=== PATIENT | male | born 1960 | race Caucasian/White ===

== ENCOUNTER 2017-01-18 11:12 | Emergency (ER) | payer MEDICAID | END 2017-01-18 12:20 | disposition home or self-care (01) | LOC: D.ER 11:12 | DX: M54.30 Sciatica, unspecified side (principal); S39.012A Strain of muscle, fascia and tendon of lower back, initial encounter; X58.XXXA Exposure to other specified factors, initial encounter; Y93.89 Activity, other specified; Y92.89 Other specified places as the place of occurrence of the external cause; M62.830 Muscle spasm of back; M54.5 Low back pain ==

== ENCOUNTER 2017-02-14 06:10 | Emergency (ER) | payer MEDICAID | END 2017-02-14 07:32 | disposition home or self-care (01) | LOC: D.ER 06:10 | DX: M54.5 Low back pain (principal); M51.36 Other intervertebral disc degeneration, lumbar region ==

== ENCOUNTER 2017-02-27 21:45 | Emergency (ER) | payer MEDICAID | END 2017-02-27 23:10 | disposition home or self-care (01) | LOC: D.ER 21:45 | DX: M54.5 Low back pain (principal); M51.36 Other intervertebral disc degeneration, lumbar region ==

== ENCOUNTER 2017-02-28 14:11 | Emergency (ER) | payer MEDICAID | END 2017-02-28 16:59 | disposition home or self-care (01) | LOC: D.ER 14:11 | DX: M54.5 Low back pain (principal); M62.838 Other muscle spasm; M54.30 Sciatica, unspecified side; M51.36 Other intervertebral disc degeneration, lumbar region ==

== ENCOUNTER 2017-03-09 09:58 | Emergency (ER) | payer MEDICAID ==
[2017-03-09 10:35] LABS: BASOPHILS 0.2 % (0-2); EOSINOPHILS 0.5 % (0-7); HEMATOCRIT 44.1 % (42.0-54.0); HEMOGLOBIN 14.7 g/dL (13.5-17.5); IMMATURE GRANULOCYTES 0.6 % (0-5); LYMPHOCYTES 14.8 % (15-50); MCH 30.5 pg (26.0-34.0); MCHC 33.3 g/dL (31.0-37.0); MCV 91.5 fL (80.0-100.0); MEAN PLATELET VOLUME 9.8 fL (7.4-10.4); MONOCYTES 7.3 % (2-11); NEUTROPHILS 76.6 % (40-80); PLATELET COUNT 281 10x3/uL (130-400); RBC 4.82 10x6/uL (4.20-6.10); RDW 12.6 % (11.5-14.5); WBC 10.4 10x3/uL (4.8-10.8)
[2017-03-09 10:48] LABS: ALBUMIN 3.9 g/dL (3.4-5.0); ALKALINE PHOSPHATASE 102 U/L (46-116); ALT (SGPT) 27 U/L (10-68); CALC OSMOLALITY 280 mosm/kg (275-300); CALCIUM 9.3 mg/dL (8.5-10.1); CARBON DIOXIDE 29.2 mmol/L (21.0-32.0); CHLORIDE - SERUM 104 mmol/L (98-107); CREATININE - SERUM 0.7 mg/dL (0.6-1.3); GLUCOSE 114 mg/dL (74-106); POTASSIUM - SERUM 4.1 mmol/L (3.5-5.1); PROTEIN - SERUM 7.3 g/dL (6.4-8.2); SODIUM 141 mmol/L (136-145); UREA NITROGEN 11 mg/dL (7-18); eGFR NON AFRICAN AMERICAN > 90 mL/min (90-120)
[2017-03-09 12:07] LABS: APPEARANCE CLEAR (CLEAR); BILIRUBIN NEGATIVE (NEGATIVE); COLOR YELLOW (YELLOW); GLUCOSE NEGATIVE (NEGATIVE); KETONE NEGATIVE (NEGATIVE); LEUKOCYTE ESTERASE NEGATIVE (NEGATIVE); NITRITE NEGATIVE (NEGATIVE); PROTEIN NEGATIVE (NEGATIVE); SPECIFIC GRAVITY 1.005 (1.005-1.020); UROBILINOGEN NORMAL (NORMAL)
== END 2017-03-09 11:48 | disposition home or self-care (01) ==
LOC: D.ER 09:58
PROVIDERS: Emergency Medicine
DX: M54.9 Dorsalgia, unspecified (principal); F19.939 Other psychoactive substance use, unspecified with withdrawal, unspecified; G47.00 Insomnia, unspecified; M62.830 Muscle spasm of back; M51.36 Other intervertebral disc degeneration, lumbar region

== ENCOUNTER 2017-03-21 09:17 | Inpatient (IN) | payer MEDICAID ==
[~2017-03-21] VITALS: Ht 172.7 cm; Wt 79.5 kg
--- NOTE | ~2017-03-21 | CN ---
PATIENT NAME:PHAM DAVID MEDICAL RECORD: [id number] : 62 LOCATION:D.[place] D.2109 ADMIT DATE: 03/21/17 ACCOUNT: [id number] CONSULTING PHYSICIAN: SINAN MONGE MD REFERRING PHYSICIAN: ROSANNE BECKFORD MD DATE OF CONSULTATION: 03/21/2017 CONSULT REQUESTING PHYSICIAN: Rosanne Beckford MD. REASON FOR CONSULTATION: Bilateral pneumonia and shortness of breath. HISTORY OF PRESENT ILLNESS: Mr. David is a 56-year-old gentleman, who is sick and had some antibiotics at home, but the patient was not getting any better. He was coughing. He has shortness of breath. He has got fever and chills. He came into the ER, evaluation found that he has bilateral pneumonia. REVIEW OF SYSTEMS: Mainly in the history of present illness. PAST MEDICAL HISTORY: 1. History of pneumonia, no history of COPD or asthma. 2. Gastroesophageal reflux disease. PAST SURGICAL HISTORY: None significant. ALLERGIES: HE IS ALLERGIC TO BACTRIM. HOME MEDICATIONS: He is on [place] and [place]. PERSONAL AND SOCIAL HISTORY: The patient is an ex-smoker. He is a nondrinker. FAMILY HISTORY: Noncontributory. PHYSICAL EXAMINATION: GENERAL: Now, the patient is lying comfortably in bed. He is not in acute distress. VITAL SIGNS: The blood pressure is 107/86, pulse is 105, respirations 18, temperature 98, and SPO2 is 97% on 2 liter nasal cannula. HEENT: Conjunctivae are pink. Sclerae are nonicteric. NECK: Supple, no JVD. CHEST: There are bilateral crackles. No wheezing. HEART: Rate and rhythm regular, normal sound, no murmur. ABDOMEN: Soft, bowel sounds present. No hepatosplenomegaly. RECTAL: Deferred. EXTREMITIES: No cyanosis, no clubbing, no pedal edema. SKIN: Warm, normal turgor. CENTRAL NERVOUS SYSTEM: The patient is awake and alert. There are no obvious cranial nerve abnormalities. The gait was not tested. CHEST RADIOGRAPH: There are bilateral infiltrate and atelectasis. OTHER LABORATORY DATA: CBC with WBC of 8.5, hemoglobin 13.7, hematocrit 41.7, and platelet count 294. Chemistry: Sodium 142, potassium 4.3, BUN is 7, creatinine 0.8 and glucose 147. IMPRESSION: CONSULT REPORT [id number] PHAM DAVID 1. Pneumonia, multilobar and bilateral. 2. Most likely community-acquired pneumonia, I will doubt aspiration. 3. Acute hypoxic respiratory failure. 4. Gastroesophageal reflux disease. 5. Ex-smoker. RECOMMENDATION: 1. Continue Rocephin. Discontinue Zithromax, start him on Levaquin. 2. GERD precaution. 3. Followup labs and chest radiograph in the morning. 4. Mucinex DM [address] Beckford, once again thank you for involving me in the care of Mr. David. TRANSINT:[id number] Voice Confirmation ID: [id number] DOCUMENT ID: [id number] SINAN MONGE MD CC: ROSANNE BECKFORD MD [id number] DICTATION DATE: 03/21/171612 SUPERVISOR NUCLEAR MEDICINE: 03/21/17 170 ADM IN [place] [id number] [place] [id number]
--- NOTE | ~2017-03-21 | EC ---
PATIENT:PHAM DOBSON DATE OF SERVICE: 03/21/17 SEX: M MEDICAL RECORD: [id number] DATE OF : 62 LOCATION:D.M2 D.210 AGE OF PATIENT: 56 ADMISSION DATE: 03/21/17 REFERRING PHYSICIAN: INTERPRETING PHYSICIAN: HILARY SKINNER M.D. ECHOCARDIOGRAM REPORT ECHO CHARGES 4 ECHO COMPLETE CLINICAL DIAGNOSIS: DYSPNEA ECHOCARDIOGRAPHIC MEASUREMENTS (adult normal given) AC root (d.<3.7cm) 3.9 LV Septum d (<1.2 cm> 1.6 Valve Excursion 2.2 LV Septum (systole) 1.9 Left Atria (s.<4.0cm> 4.1 LVPW d(<1.2cm) 1.4 RV (d.<2.3cm) 2.7 LVPW (sytole) 2.1 LV diastole(<5.6CM) 6.1 MV E-F(>70mm/sec) LV systole 3.9 LVOT Diameter 2.1 MV exc.(>10mm) Est.ejection fraction (50-75%) Pericardial Effusion N DOPPLER: LVIT A 79.0 E 53.0 LA RVSP 32.0 LVOT 100 AOP1/2T Asc. Ao 151 RVOT 80.0 RA PA 111 AV Gradient Peak 9.2 AV Mean 3.7 AV Area 2.4 MV Gradient Peak 3.6 MV Mean 1.4 MV Area COMMENTS: Topstitcher Lockstitch: Negrita GONZALEZOE Import Customs Clearing Agent:Misha Skinner TAPE# PACS DATE OF SERVICE: 03/22/2017 REFERRING PHYSICIAN: Deon Beckford MD. INDICATION: Dyspnea. DESCRIPTION: Left ventricle demonstrates left ventricular hypertrophy. No wall motion abnormalities are seen. Estimated ejection fraction is 55%. Mitral valve is structurally normal. There is trivial regurgitation noted. Left atrium is mildly dilated. The aortic valve is trileaflet. There is no stenosis ECHOCARDIOGRAM REPORT [id number] PHAM DOBSON or regurgitation seen. The ascending aorta is mildly dilated at 3.9 cm. Right ventricle is mildly dilated. Tricuspid valve is structurally normal. There is trivial regurgitation noted. Right atrium is normal size. There is no pericardial effusion noted. Right ventricular systolic pressure is elevated at 30 mmHg. IMPRESSION: 1. Left ventricular hypertrophy with preserved ejection fraction of 55%. 2. Trivial mitral regurgitation. 3. Trivial tricuspid regurgitation. TRANSINT:[id number] Voice Confirmation ID: [id number] DOCUMENT ID: [id number] HILARY SKINNER M.D. CC: [id number] DICTATION DATE: 03/22/17 154 BUSINESS EXCELLENCE MANAGER: 03/22/17 1600 ADM IN [facility] [address] [place] [id number]
[2017-03-21 09:47] LABS: BASOPHILS 0.4 % (0-2); EOSINOPHILS 2.2 % (0-7); HEMATOCRIT 41.7 % (42.0-54.0); HEMOGLOBIN 13.7 g/dL (13.5-17.5); IMMATURE GRANULOCYTES 0.9 % (0-5); LYMPHOCYTES 15.6 % (15-50); MCH 30.5 pg (26.0-34.0); MCHC 32.9 g/dL (31.0-37.0); MCV 92.9 fL (80.0-100.0); MEAN PLATELET VOLUME 9.8 fL (7.4-10.4); NEUTROPHILS 74.9 % (40-80); PLATELET COUNT 294 10x3/uL (130-400); RBC 4.49 10x6/uL (4.20-6.10); RDW 12.4 % (11.5-14.5); WBC 8.5 10x3/uL (4.8-10.8)
[2017-03-21 10:09] LABS: CALC OSMOLALITY 283 mosm/kg (275-300); CALCIUM 9.7 mg/dL (8.5-10.1); CARBON DIOXIDE 32.7 mmol/L (21.0-32.0); CHLORIDE - SERUM 105 mmol/L (98-107); CKMB 0.3 U/L (0.0-3.6); CREATINE KINASE 43 UL (21-232); CREATININE - SERUM 0.8 mg/dL (0.6-1.3); GLUCOSE 145 mg/dL (74-106); POTASSIUM - SERUM 4.3 mmol/L (3.5-5.1); PRO BNP 44 pg/mL (0-125); SODIUM 142 mmol/L (136-145); TROPONIN-I < 0.017 ng/mL (0.000-0.060); UREA NITROGEN 7 mg/dL (7-18); eGFR NON AFRICAN AMERICAN > 90 mL/min (90-120)
--- NOTE | 2017-03-21 11:08 | NUR ---
RECEIVED PATIENT VIA [employer] ALERT/AWAKE FROM ED AT THIS TIME. ASSISTED PATIENT TO BED. ROCEPHIN COMPLETED INFUSING AT THIS TIME. CALL LIGHT PLACED WITHIN REACH. NO DISTRESS. IV TO LEFT LATERAL AC AREA.
[2017-03-21] MEDS ORDERED: LOTREL 10/20 CA1 CAP PO (11:13)
[2017-03-21] MEDS ORDERED: HYDROCODONE-APA1 TAB PO (11:15)
--- NOTE | 2017-03-21 13:35 | NUR ---
MEDICATED FOR ANXIETY AND PAIN AT THIS TIME. NO DISTRESS.
[2017-03-21 14:54] VITALS: BP 107/86; Ht 172.7 cm; Wt 79.5 kg
--- NOTE | 2017-03-21 18:30 | NUR ---
SITTING IN BED WITH ATTENTION TOWARD TELEVISION. CALL LIGHT WITHIN REACH. NO DISTRESS. DENIES NEEDS AT THIS TIME.
--- NOTE | 2017-03-21 19:17 | NUR ---
MEDICATED FOR PAIN AT THIS TIME. NO DISTRESS.
[2017-03-21 20:23] VITALS: BP 117/74
--- NOTE | 2017-03-21 22:45 | NUR ---
INITIAL ROUNDS COMPETED AT 1920 HRS. PT STATED HE JUST RECEIVED HIS ATIVAN AND NORCO FROM PREVIOUS NURSE. ASSSESSMETN COMPLETED AT 2015 HRS. SCD'S OFF PER PT'S REQUESTS. REFUSES SCD'S HE IS UP AD FLO. O2 2LNC. LUNGS DIMINISHED IN BASES WITH SCATTERED CRACKLES NOTED. IV TO LAC SL. PM MEDS GIVEN PER ORDERS. PT CURRENTLY RESTING WTIH EYES CLOSED. RESP EVEN AND REGULAR. SR UP X2, CALL LIGHT WITHIN REACH.
[2017-03-21 23:59] VITALS: BP 123/76
--- NOTE | 2017-03-22 00:23 | NUR ---
PT STATES WILL REFUSE 0400 VSS. WILL CONTINUE TO MONITOR.
--- NOTE | 2017-03-22 02:32 | NUR ---
PT RESTING WITH EYES CLOSED. RESP EVEN AND REGULAR. SR UP X2, CALL LIGHT WITHIN REACH.
--- NOTE | 2017-03-22 04:45 | NUR ---
PT RESTING WITHEYES CLOSED. RESP EVEN AND REGULAR. SR UP X2, CALL LIGHT WITHIN REACH.
[2017-03-22 05:09] LABS: BASOPHILS 0.2 % (0-2); EOSINOPHILS 4.2 % (0-7); HEMATOCRIT 38.4 % (42.0-54.0); HEMOGLOBIN 12.2 g/dL (13.5-17.5); IMMATURE GRANULOCYTES 0.7 % (0-5); LYMPHOCYTES 19.4 % (15-50); MCH 29.6 pg (26.0-34.0); MCHC 31.8 g/dL (31.0-37.0); MCV 93.2 fL (80.0-100.0); MONOCYTES 9.7 % (2-11); NEUTROPHILS 65.8 % (40-80); PLATELET COUNT 285 10x3/uL (130-400); RBC 4.12 10x6/uL (4.20-6.10); RDW 12.3 % (11.5-14.5); WBC 8.4 10x3/uL (4.8-10.8)
[2017-03-22 05:15] LABS: CALC OSMOLALITY 280 mosm/kg (275-300); CARBON DIOXIDE 29.9 mmol/L (21.0-32.0); CHLORIDE - SERUM 105 mmol/L (98-107); CREATININE - SERUM 0.8 mg/dL (0.6-1.3); GLUCOSE 119 mg/dL (74-106); POTASSIUM - SERUM 4.3 mmol/L (3.5-5.1); SODIUM 141 mmol/L (136-145); UREA NITROGEN 9 mg/dL (7-18); eGFR NON AFRICAN AMERICAN > 90 mL/min (90-120)
--- NOTE | 2017-03-22 06:08 | NUR ---
VSS THROUGHOUT NGIHT. PT REFUSES 0400 VS. PT STAES ATIVAN AND NORCO CONTROL CHRONIC BACK PAIN. NEEDS MET; WILL CONTINUE TO MONITOR.
[2017-03-22 08:36] VITALS: BP 125/83
[2017-03-22 11:38] VITALS: BP 117/65
[2017-03-22 12:44] LABS: CKMB 0.2 U/L (0.0-3.6); CREATINE KINASE 26 UL (21-232); TROPONIN-I < 0.017 ng/mL (0.000-0.060)
[2017-03-22 12:51] LABS: HEMOGLOBIN A1C 5.9 % (4.8-6.0)
[2017-03-22] MEDS ORDERED: CYCLOBENZAPRINE10 MG PO (15:16)
[2017-03-22] MEDS ORDERED: OMEPRAZOLE20 M1 PO (15:16)
[2017-03-22 15:43] VITALS: BP 127/77
[2017-03-22 18:00] LABS: CKMB 0.3 U/L (0.0-3.6); CREATINE KINASE 30 UL (21-232)
[2017-03-22 18:02] LABS: TROPONIN-I < 0.017 ng/mL (0.000-0.060)
[2017-03-22 18:09] LABS: % SATURATION 17 % (15-55); IRON 39 ug/dl (35-150); TOTAL IRON BIND CAPACITY 217 ug/dl (260-445); UNSAT IRON BIND CAPACITY 178 ug/dl (150-375)
--- NOTE | 2017-03-22 19:46 | NUR ---
ALERT/AWAKE WATCHING TV. REQUESTED ATIVAN. ON 02 AT 2L/NC RR 18 EVEN U/L. IV IN L FA INTACT SL. REFUSES SCD'S ON. CALL LIGHT AND BEDSIDE TABLE WITH PERSONAL ITEMS IN REACH.
[2017-03-22 20:00] VITALS: BP 135/86
--- NOTE | 2017-03-22 20:23 | NUR ---
ADMIN ATIVAN PO PER REQUEST FOR AXIETY. WALKING AROUND IN ROOM. STATED "I DO NOT WANT TO BE WOKE UP FOR MIDNIGHT VITAL SIGNS". WILL INFORM MATERIALS HANDLING EQUIPMENT OPERATOR.
--- NOTE | 2017-03-22 23:20 | NUR ---
BULK SYSTEM OPERATOR PRESENT IN ROOM. DENIES PAIN OR ANY NEEDS.
[2017-03-22 23:54] LABS: CKMB 0.4 U/L (0.0-3.6); CREATINE KINASE 49 UL (21-232)
[2017-03-22 23:55] LABS: TROPONIN-I < 0.017 ng/mL (0.000-0.060)
[2017-03-23 04:16] VITALS: BP 98/78
[2017-03-23 05:18] LABS: BASOPHILS 0.2 % (0-2); EOSINOPHILS 3.2 % (0-7); HEMATOCRIT 39.5 % (42.0-54.0); HEMOGLOBIN 12.6 g/dL (13.5-17.5); IMMATURE GRANULOCYTES 1.6 % (0-5); LYMPHOCYTES 16.8 % (15-50); MCH 29.5 pg (26.0-34.0); MCHC 31.9 g/dL (31.0-37.0); MCV 92.5 fL (80.0-100.0); MEAN PLATELET VOLUME 9.7 fL (7.4-10.4); MONOCYTES 6.7 % (2-11); NEUTROPHILS 71.5 % (40-80); PLATELET COUNT 315 10x3/uL (130-400); RBC 4.27 10x6/uL (4.20-6.10); RDW 12.3 % (11.5-14.5); WBC 10.1 10x3/uL (4.8-10.8)
[2017-03-23 05:49] LABS: CALC OSMOLALITY 277 mosm/kg (275-300); CARBON DIOXIDE 30.4 mmol/L (21.0-32.0); CHLORIDE - SERUM 104 mmol/L (98-107); CREATININE - SERUM 0.8 mg/dL (0.6-1.3); GLUCOSE 118 mg/dL (74-106); SODIUM 139 mmol/L (136-145); UREA NITROGEN 11 mg/dL (7-18); eGFR NON AFRICAN AMERICAN > 90 mL/min (90-120)
--- NOTE | 2017-03-23 06:10 | NUR ---
ADMIN NORCO 10 MG PO AND ATIVAN 1 MG PO PER REQUEST. NO OTHER NEEDS VOICED.
[2017-03-23 07:53] VITALS: BP 126/75
[2017-03-23 11:38] VITALS: BP 125/84
[2017-03-23 16:35] VITALS: BP 132/85
[2017-03-23 19:00] VITALS: BP 130/84
--- NOTE | 2017-03-23 22:30 | NUR ---
SITED IV IN RT FA WITH 22G. ADMIN TORADOL 30 MG IV. REQUESTED DOOR CLOSED AND LIGHTS OUT TO SLEEP. REQUESTED TO HOLD MIDNIGHT VITAL SIGNS.
[2017-03-24 04:32] VITALS: BP 113/43
--- NOTE | 2017-03-24 04:45 | NUR ---
ADMIN SCHED TORADOL IV. REQUESTED LIGHTS OFF AND DOOR CLOSED TO GO BACK TO SLEEP.
[2017-03-24 06:05] LABS: BASOPHILS 0.3 % (0-2); EOSINOPHILS 2.8 % (0-7); HEMATOCRIT 38.6 % (42.0-54.0); HEMOGLOBIN 12.4 g/dL (13.5-17.5); LYMPHOCYTES 15.5 % (15-50); MCH 29.9 pg (26.0-34.0); MCHC 32.1 g/dL (31.0-37.0); MEAN PLATELET VOLUME 9.6 fL (7.4-10.4); MONOCYTES 7.4 % (2-11); PLATELET COUNT 300 10x3/uL (130-400); RBC 4.15 10x6/uL (4.20-6.10); RDW 12.4 % (11.5-14.5); WBC 9.6 10x3/uL (4.8-10.8)
[2017-03-24 06:23] LABS: CALC OSMOLALITY 283 mosm/kg (275-300); CARBON DIOXIDE 28.7 mmol/L (21.0-32.0); CHLORIDE - SERUM 106 mmol/L (98-107); CREATININE - SERUM 0.8 mg/dL (0.6-1.3); GLUCOSE 131 mg/dL (74-106); POTASSIUM - SERUM 3.9 mmol/L (3.5-5.1); SODIUM 142 mmol/L (136-145); UREA NITROGEN 10 mg/dL (7-18); eGFR NON AFRICAN AMERICAN > 90 mL/min (90-120)
--- NOTE | 2017-03-24 06:41 | NUR ---
ADMIN NORCO 10 PO AND ATIVAN 1MG PO PER REQUEST FOR C/O "PAIN IN MY BACK". NO OTHER NEEDS VOICED.
--- NOTE | 2017-03-24 07:17 | NUR ---
PT SITTING UP IN BED ASKING ABOUT DC TO HOME. NO ORDERS TO DC OF NOW, PT IS AWARE. PT DENIES OTHER NEEDS WILL CONT TO MONITOR.
[2017-03-24 08:21] LABS: FOLATE (FOLIC ACID) - SERUM 16.2 ng/mL (>3.0)
[2017-03-24 11:53] VITALS: BP 158/92
[2017-03-24] MEDS ORDERED: LEVAQUIN750 MG PO (12:36)
[2017-03-24] MEDS ORDERED: FLORAJEN3 CAPS460 MG PO (12:41)
--- NOTE | 2017-03-24 14:08 | NUR ---
DC PIV WITH CATHETER TIP INTACT. PT IS VERY UPSET AND YELLING AT ME STATING IT HAS BEEN TWO HOURS SINCE DR SALCEDO TOLD HIM HE WOULD BE DISCHARGED HOME AND HE WANTS TO GO NOW. I EXPLAINED TO PT, LIKE I HAVE SEVERAL TIMES IN THE TIME THAT DR SALCEDO TOLD HIM HE COULD GO HOME THAT WE DID NOT HAVE AN ORDER FOR DISCHARGE YET AND THAT WE CAN NOT COMPLETE PAPERWORK UNTIL DC ORDER IS PLACED. PT STILL YELLING AND IS STANDING AT BEDSIDE ALSO ANGRY....
--- NOTE | 2017-03-24 14:43 | NUR ---
WENT OVER DC PAPERWORK WITH PT AND PT BOTH VERBALIZE UNDERSTANDING. PT WAS GIVEN PAPER SCRIPTS FOR SULAIMAN, JIMI, AND ULISES. PT REFUSED WHEELCHAIR AND WALKED OUT WITH .
--- NOTE | 2017-03-24 14:50 | NUR ---
Patient Name: PHAM DOBSON Admission Status: ER Accout number: [id number] Admission Date: 03-21-2017 : 1960 Admission Diagnosis:PNEUMONIA, UNSPECIFIED ORGANISM Attending: DELFINO Current LOS: 3 Anticipated DC Date: 03-24-2017 Planned Disposition: Home Primary Insurance: [place] PRIVATE OPTIONS ARA LATE ENTRY: Discharge Planning Comments: * Is the patient Alert and Oriented? Yes 0 * How many steps to enter\exit or inside your home? 4 0 * PCP DR. DEMPSEY 0 * Pharmacy [facility] OR [facility] 0 * Preadmission Environment Home with Family 0 * ADLs Independent 0 * Equipment None 0 * Other Equipment NO MEDICAL EQUIPMENT PROVIDER PREFERENCE 0 * List name and contact numbers for known caregivers / representatives who currently or will assist patient after discharge: IRIS DOBSON, SPOUSE, 0 * Community resources currently utilized None 0 * Please name any agencies selected above. NONE 0 * Additional services required to return to the preadmission environment? No 0 * Can the patient safely return to the preadmission environment? Yes 0 * Has this patient been hospitalized within the prior 30 days at any hospital? No 0 CM MET WITH PT IN ROOM TO DISCUSS DISCHARGE PLANNING AND NEEDS. PT REPORTS LIVING AT HOME INDEPENDENTLY WITH SPOUSE. PT HAS NO MEDICAL EQUIPMENT AND NO OUTSIDE SERVICES ASSISTING IN THE HOME. CM DISCUSSED AVAILABILITY OF HOME HEALTH, REHAB SERVICES AND MEDICAL EQUIPMENT. PT DENIES DISCHARGE NEEDS, REPORTS HIS SPOUSE IS HERE TO TRANSPORT HOME AT DISCHARGE TODAY. CM PROVIDED PT WITH HIS INSURANCE COMMUNITY HVAC SERVICE MANAGERMANAGER PORT INFORMATION IN CASE HE NEEDS IT IN THE FUTURE. Manager Category: Juanito Bryan
== END 2017-03-24 14:44 | disposition home or self-care (01) | DRG 189 ==
LOC: D.ER 09:17 → D.M2 10:58
PROVIDERS: Emergency Medicine; Family Medicine; Internal Medicine Pulmonary Disease; ADMIT Emergency Medicine
DX: J96.01 Acute respiratory failure with hypoxia (principal); J18.9 Pneumonia, unspecified organism; J44.0 Chronic obstructive pulmonary disease with (acute) lower respiratory infection; J44.1 Chronic obstructive pulmonary disease with (acute) exacerbation; I10 Essential (primary) hypertension; K21.9 Gastro-esophageal reflux disease without esophagitis; I08.1 Rheumatic disorders of both mitral and tricuspid valves; D64.9 Anemia, unspecified; G89.29 Other chronic pain; M54.9 Dorsalgia, unspecified; Z87.01 Personal history of pneumonia (recurrent); Z87.891 Personal history of nicotine dependence

== ENCOUNTER 2017-08-10 09:55 | Emergency (ER) | payer MEDICAID ==
[2017-03-21 14:54] VITALS: BMI 26.6
[~2017-08-10 09:55] MED LIST: CYCLOBENZAPRINE10 MG PO; FLORAJEN3 CAPS460 MG PO; HYDROCODONE-APA1 TAB PO; LEVAQUIN750 MG PO; LOTREL 10/20 CA1 CAP PO; OMEPRAZOLE20 M1 PO
== END 2017-08-10 11:27 | disposition home or self-care (01) ==
LOC: D.ER 09:55
DX: M54.5 Low back pain (principal); F17.200 Nicotine dependence, unspecified, uncomplicated

== ENCOUNTER 2017-08-29 17:50 | Emergency (ER) | payer MEDICAID ==
[2017-03-21 14:54] VITALS: BMI 26.6
== END 2017-08-29 19:30 | disposition home or self-care (01) ==
LOC: D.ER 17:50
DX: M54.5 Low back pain (principal); S39.012A Strain of muscle, fascia and tendon of lower back, initial encounter; X58.XXXA Exposure to other specified factors, initial encounter; Y93.89 Activity, other specified; Y92.89 Other specified places as the place of occurrence of the external cause

== ENCOUNTER 2017-09-07 05:49 | Emergency (ER) | payer MEDICAID ==
[2017-03-21 14:54] VITALS: BMI 26.6
== END 2017-09-07 09:04 | disposition home or self-care (01) ==
LOC: D.ER 05:49
DX: M54.5 Low back pain (principal)

== ENCOUNTER 2017-10-02 11:07 | Emergency (ER) | payer MEDICAID ==
[2017-03-21 14:54] VITALS: BMI 26.6
== END 2017-10-02 15:00 | disposition home or self-care (01) ==
LOC: D.ER 11:07
DX: M54.5 Low back pain (principal); S39.012A Strain of muscle, fascia and tendon of lower back, initial encounter; X58.XXXA Exposure to other specified factors, initial encounter; Y93.89 Activity, other specified; Y92.029 Unspecified place in mobile home as the place of occurrence of the external cause

== ENCOUNTER 2017-10-30 09:22 | Emergency (ER) | payer MEDICAID ==
[2017-03-21 14:54] VITALS: BMI 26.6
== END 2017-10-30 11:05 | disposition home or self-care (01) ==
LOC: D.ER 09:22
DX: M54.5 Low back pain (principal); S39.012A Strain of muscle, fascia and tendon of lower back, initial encounter; X58.XXXA Exposure to other specified factors, initial encounter; Y93.89 Activity, other specified; Y92.89 Other specified places as the place of occurrence of the external cause; M62.830 Muscle spasm of back

== ENCOUNTER 2017-11-28 09:38 | Emergency (ER) | payer MEDICAID ==
[2017-03-21 14:54] VITALS: BMI 26.6
== END 2017-11-28 10:53 | disposition home or self-care (01) ==
LOC: D.ER 09:38
DX: M79.1 Myalgia (principal); M54.5 Low back pain

== ENCOUNTER 2018-02-23 18:52 | Emergency (ER) | payer MEDICAID ==
[2017-03-21 14:54] VITALS: BMI 26.6
== END 2018-02-23 22:17 | disposition home or self-care (01) ==
LOC: D.ER 18:52
DX: M54.5 Low back pain (principal); M62.838 Other muscle spasm; M54.16 Radiculopathy, lumbar region

== ENCOUNTER 2018-02-27 10:41 | Emergency (ER) | payer MEDICAID ==
[2017-03-21 14:54] VITALS: BMI 26.6
== END 2018-02-27 12:35 | disposition home or self-care (01) ==
LOC: D.ER 10:41
DX: M54.5 Low back pain (principal)

== ENCOUNTER 2018-04-10 01:13 | Emergency (ER) | payer MEDICAID ==
[2017-03-21 14:54] VITALS: BMI 26.6
[2018-04-10 02:55] LABS: BASOPHILS 0.1 % (0-2); EOSINOPHILS 1.1 % (0-7); HEMOGLOBIN 13.2 g/dL (13.5-17.5); IMMATURE GRANULOCYTES 0.2 % (0-5); LYMPHOCYTES 12.4 % (15-50); MCH 29.1 pg (26.0-34.0); MCV 88.1 fL (80.0-100.0); MEAN PLATELET VOLUME 9.8 fL (7.4-10.4); NEUTROPHILS 78.2 % (40-80); RBC 4.54 10x6/uL (4.20-6.10); RDW 12.9 % (11.5-14.5); WBC 12.8 10x3/uL (4.8-10.8)
[2018-04-10 02:59] LABS: PLATELET COUNT 229 10x3/uL (130-400)
[2018-04-10 03:08] LABS: INR 0.98 (0.85-1.17); PROTIME 12.6 SECONDS (11.6-15.0)
[2018-04-10 03:11] LABS: ALBUMIN 3.5 g/dL (3.4-5.0); ALKALINE PHOSPHATASE 92 U/L (46-116); ALT (SGPT) 31 U/L (10-68); BILIRUBIN - TOTAL 0.24 mg/dL (0.2-1.3); CALC OSMOLALITY 291 mosm/kg (275-300); CALCIUM 9.1 mg/dL (8.5-10.1); CARBON DIOXIDE 27.1 mmol/L (21.0-32.0); CHLORIDE - SERUM 109 mmol/L (98-107); CREATININE - SERUM 0.7 mg/dL (0.6-1.3); GLUCOSE 102 mg/dL (74-106); POTASSIUM - SERUM 3.5 mmol/L (3.5-5.1); PROTEIN - SERUM 6.6 g/dL (6.4-8.2); SODIUM 148 mmol/L (136-145); UREA NITROGEN 8 mg/dL (7-18); eGFR NON AFRICAN AMERICAN > 90 mL/min (90-120)
== END 2018-04-10 05:03 | disposition home or self-care (01) ==
LOC: D.ER 01:13
PROVIDERS: Family Medicine
DX: M54.5 Low back pain (principal)

== ENCOUNTER 2018-04-15 16:18 | Emergency (ER) | payer MEDICAID ==
[~2018-04-15] VITALS: Ht 172.7 cm; Wt 81.8 kg
[2018-04-15 16:40] VITALS: Ht 172.7 cm; Wt 81.8 kg
[2018-04-15 22:47] VITALS: BP 130/77
== END 2018-04-15 22:48 | disposition home or self-care (01) ==
LOC: D.ER 16:18
DX: R07.81 Pleurodynia (principal); R51 Headache; W10.9XXA Fall (on) (from) unspecified stairs and steps, initial encounter; Y93.89 Activity, other specified; Y92.019 Unspecified place in single-family (private) house as the place of occurrence of the external cause; I10 Essential (primary) hypertension

== ENCOUNTER 2018-06-23 18:49 | Observation (INO) | payer MEDICAID ==
[~2018-06-23] VITALS: Ht 172.7 cm; Wt 79.5 kg
[2018-06-23 19:38] LABS: BASOPHILS 0.2 % (0-2); EOSINOPHILS 1.5 % (0-7); HEMATOCRIT 42.1 % (42.0-54.0); IMMATURE GRANULOCYTES 0.5 % (0-5); LYMPHOCYTES 21.3 % (15-50); MCHC 33.3 g/dL (31.0-37.0); MCV 90.1 fL (80.0-100.0); MEAN PLATELET VOLUME 9.8 fL (7.4-10.4); MONOCYTES 9.3 % (2-11); NEUTROPHILS 67.2 % (40-80); PLATELET COUNT 248 10x3/uL (130-400); RBC 4.67 10x6/uL (4.20-6.10); RDW 12.7 % (11.5-14.5); WBC 8.7 10x3/uL (4.8-10.8)
[2018-06-23 19:58] LABS: CREATININE - SERUM 0.8 mg/dL (0.6-1.3); GLUCOSE 103 mg/dL (74-106); UREA NITROGEN 13 mg/dL (7-18); eGFR NON AFRICAN AMERICAN > 90 mL/min (90-120)
[2018-06-23 19:59] LABS: ALBUMIN 3.6 g/dL (3.4-5.0); ALKALINE PHOSPHATASE 107 U/L (46-116); ALT (SGPT) 23 U/L (10-68); BILIRUBIN - TOTAL 0.26 mg/dL (0.2-1.3); CALC OSMOLALITY 282 mosm/kg (275-300); CALCIUM 8.9 mg/dL (8.5-10.1); CARBON DIOXIDE 30.2 mmol/L (21.0-32.0); CHLORIDE - SERUM 105 mmol/L (98-107); POTASSIUM - SERUM 3.6 mmol/L (3.5-5.1); PROTEIN - SERUM 7.3 g/dL (6.4-8.2); SODIUM 142 mmol/L (136-145)
[2018-06-23 20:30] VITALS: BP 138/91
[2018-06-23 20:35] LABS: INR 0.97 (0.85-1.17); PROTIME 12.4 SECONDS (11.6-15.0)
[2018-06-23 20:36] LABS: AMYLASE - SERUM 28 U/L (25-115); C-REACTIVE PROTEIN 0.3 mg/dL (0.0-0.9); CKMB 1.6 U/L (0.0-3.6); CREATINE KINASE 92 UL (21-232); LIPASE 65 U/L (73-393); PRO BNP 38 pg/mL (0-125); THYROID STIMULATING HORMONE 1.23 uIU/mL (0.36-3.74)
[2018-06-23 20:37] LABS: D-DIMER-QUANTITATIVE 0.31 ug/mLFEU (0.20-0.54)
[2018-06-23 22:30] VITALS: BP 133/86
[2018-06-24 01:08] VITALS: BP 153/95
[2018-06-24] MEDS ORDERED: AMBIEN10 MG PO (01:10)
[2018-06-24 01:23] VITALS: BP 153/95; BMI 26.6
[2018-06-24 04:56] VITALS: BP 130/81
[2018-06-24 05:07] LABS: BASOPHILS 0.1 % (0-2); EOSINOPHILS 0 % (0-7); HEMATOCRIT 41.5 % (42.0-54.0); HEMOGLOBIN 13.8 g/dL (13.5-17.5); IMMATURE GRANULOCYTES 0.2 % (0-5); LYMPHOCYTES 5.2 % (15-50); MCHC 33.3 g/dL (31.0-37.0); MCV 90.2 fL (80.0-100.0); MEAN PLATELET VOLUME 10.2 fL (7.4-10.4); MONOCYTES 0.6 % (2-11); NEUTROPHILS 93.9 % (40-80); PLATELET COUNT 254 10x3/uL (130-400); RDW 12.5 % (11.5-14.5); WBC 9.6 10x3/uL (4.8-10.8)
[2018-06-24 05:28] LABS: CALCIUM 8.6 mg/dL (8.5-10.1); CHLORIDE - SERUM 105 mmol/L (98-107); CREATININE - SERUM 0.8 mg/dL (0.6-1.3); SODIUM 140 mmol/L (136-145); UREA NITROGEN 12 mg/dL (7-18); eGFR NON AFRICAN AMERICAN > 90 mL/min (90-120)
[2018-06-24 05:30] LABS: CALC OSMOLALITY 284 mosm/kg (275-300); GLUCOSE 204 mg/dL (74-106); POTASSIUM - SERUM 4.3 mmol/L (3.5-5.1)
[2018-06-24 08:46] VITALS: BP 143/82
[2018-06-24 11:41] VITALS: Ht 172.7 cm; Wt 79.5 kg
[2018-06-24] MEDS ORDERED: PROAIR HFA8.5 GM INH (11:42)
== END 2018-06-24 14:26 | disposition home or self-care (01) ==
LOC: D.ER 18:49 → D.MS 22:33 → D.EDHOLD 22:33 → OBSVTIME 22:33 → D.MS 23:00
PROVIDERS: Family Medicine
DX: J44.1 Chronic obstructive pulmonary disease with (acute) exacerbation (principal); R06.02 Shortness of breath; I10 Essential (primary) hypertension

== ENCOUNTER 2018-07-12 21:32 | Emergency (ER) | payer MEDICAID ==
[~2018-07-12] VITALS: Ht 172.7 cm; Wt 79.5 kg
[~2018-07-12 21:32] MED LIST changes: +AMBIEN10 MG PO; +PROAIR HFA8.5 GM INH
[2018-07-12 21:50] VITALS: Ht 172.7 cm; Wt 79.5 kg
[2018-07-13] LABS: HEMATOCRIT 37.4 % (42.0-54.0); HEMOGLOBIN 12.5 g/dL (13.5-17.5); LYMPHOCYTES 21.7 % (15-50); MCH 29.4 pg (26.0-34.0); MCHC 33.4 g/dL (31.0-37.0); NEUTROPHILS 66.4 % (40-80); PLATELET COUNT 263 10x3/uL (130-400); RBC 4.25 10x6/uL (4.20-6.10); RDW 12.1 % (11.5-14.5); WBC 7.7 10x3/uL (4.8-10.8)
[2018-07-13 00:20] LABS: ALBUMIN 3.2 g/dL (3.4-5.0); ALKALINE PHOSPHATASE 94 U/L (46-116); ALT (SGPT) 31 U/L (10-68); BILIRUBIN - TOTAL 0.12 mg/dL (0.2-1.3); CALC OSMOLALITY 281 mosm/kg (275-300); CALCIUM 7.9 mg/dL (8.5-10.1); CARBON DIOXIDE 29.9 mmol/L (21.0-32.0); CHLORIDE - SERUM 106 mmol/L (98-107); CREATININE - SERUM 0.8 mg/dL (0.6-1.3); POTASSIUM - SERUM 3.7 mmol/L (3.5-5.1); PROTEIN - SERUM 6.3 g/dL (6.4-8.2); SODIUM 142 mmol/L (136-145); UREA NITROGEN 11 mg/dL (7-18); eGFR NON AFRICAN AMERICAN > 90 mL/min (90-120)
[2018-07-13 00:21] LABS: GLUCOSE 107 mg/dL (74-106)
[2018-07-13 00:31] LABS: CKMB 1.6 U/L (0.0-3.6); CREATINE KINASE 144 UL (21-232); PRO BNP 24 pg/mL (0-125)
[2018-07-13 03:28] VITALS: BP 140/85
== END 2018-07-13 03:28 | disposition home or self-care (01) ==
LOC: D.ER 21:32
PROVIDERS: Family Medicine
DX: R06.00 Dyspnea, unspecified (principal); J44.9 Chronic obstructive pulmonary disease, unspecified; R06.02 Shortness of breath; I10 Essential (primary) hypertension

== ENCOUNTER 2018-07-17 14:35 | Emergency (ER) | payer MEDICAID ==
[~2018-07-17] VITALS: Ht 172.7 cm; Wt 79.5 kg
[2018-07-17 14:38] VITALS: Ht 172.7 cm; Wt 79.5 kg
[2018-07-17 15:14] LABS: BASOPHILS 0.2 % (0-2); EOSINOPHILS 2.1 % (0-7); HEMATOCRIT 42.4 % (42.0-54.0); HEMOGLOBIN 14.1 g/dL (13.5-17.5); IMMATURE GRANULOCYTES 0.6 % (0-5); LYMPHOCYTES 12.4 % (15-50); MCH 29.8 pg (26.0-34.0); MCHC 33.3 g/dL (31.0-37.0); MCV 89.6 fL (80.0-100.0); MEAN PLATELET VOLUME 9.8 fL (7.4-10.4); MONOCYTES 7.8 % (2-11); NEUTROPHILS 76.9 % (40-80); PLATELET COUNT 275 10x3/uL (130-400); RBC 4.73 10x6/uL (4.20-6.10); RDW 12.5 % (11.5-14.5); WBC 11.1 10x3/uL (4.8-10.8)
[2018-07-17 15:23] LABS: INR 0.94 (0.85-1.17); PROTIME 12.2 SECONDS (11.6-15.0)
[2018-07-17 15:31] LABS: ALBUMIN 3.5 g/dL (3.4-5.0); ALKALINE PHOSPHATASE 100 U/L (46-116); ALT (SGPT) 27 U/L (10-68); BILIRUBIN - TOTAL 0.17 mg/dL (0.2-1.3); CALC OSMOLALITY 287 mosm/kg (275-300); CALCIUM 8.5 mg/dL (8.5-10.1); CARBON DIOXIDE 29.2 mmol/L (21.0-32.0); CHLORIDE - SERUM 107 mmol/L (98-107); CREATININE - SERUM 1.2 mg/dL (0.6-1.3); GLUCOSE 110 mg/dL (74-106); POTASSIUM - SERUM 3.7 mmol/L (3.5-5.1); PROTEIN - SERUM 7.3 g/dL (6.4-8.2); SODIUM 144 mmol/L (136-145); UREA NITROGEN 13 mg/dL (7-18); eGFR NON AFRICAN AMERICAN 66 mL/min (90-120)
[2018-07-17 15:40] LABS: CKMB 0.7 U/L (0.0-3.6); CREATINE KINASE 52 UL (21-232); LIPASE 64 U/L (73-393); PRO BNP 58 pg/mL (0-125)
[2018-07-17 15:42] LABS: TROPONIN-I < 0.017 ng/mL (0.000-0.060)
[2018-07-17] MEDS ORDERED: ZITHROMAX500 MG PO (16:24)
[2018-07-17] MEDS ORDERED: OMNICEF300 MG PO (16:24)
[2018-07-17 17:00] VITALS: BP 138/86
== END 2018-07-17 17:00 | disposition home or self-care (01) ==
LOC: D.ER 14:35
PROVIDERS: Family Medicine
DX: J18.9 Pneumonia, unspecified organism (principal); M54.9 Dorsalgia, unspecified; R06.02 Shortness of breath; R53.81 Other malaise; R53.1 Weakness; I10 Essential (primary) hypertension; J44.9 Chronic obstructive pulmonary disease, unspecified

== ENCOUNTER 2018-08-26 19:00 | Emergency (ER) | payer MEDICAID ==
[~2018-08-26] VITALS: Ht 172.7 cm; Wt 79.5 kg
[~2018-08-26 19:00] MED LIST changes: +OMNICEF300 MG PO; +ZITHROMAX500 MG PO
[2018-08-26 19:09] VITALS: Ht 172.7 cm; Wt 79.5 kg
[2018-08-26] MEDS ORDERED: ADVAIR HFA [SP]12 GM (19:13)
[2018-08-26 19:56] LABS: BASOPHILS 0.1 % (0-2); EOSINOPHILS 1.3 % (0-7); HEMATOCRIT 40.1 % (42.0-54.0); HEMOGLOBIN 13.3 g/dL (13.5-17.5); IMMATURE GRANULOCYTES 0.3 % (0-5); LYMPHOCYTES 16.4 % (15-50); MCHC 33.2 g/dL (31.0-37.0); MCV 90.5 fL (80.0-100.0); MEAN PLATELET VOLUME 9.9 fL (7.4-10.4); MONOCYTES 8.4 % (2-11); NEUTROPHILS 73.5 % (40-80); PLATELET COUNT 281 10x3/uL (130-400); RBC 4.43 10x6/uL (4.20-6.10); RDW 12.9 % (11.5-14.5); WBC 11.7 10x3/uL (4.8-10.8)
[2018-08-26 20:16] LABS: ALBUMIN 3.8 g/dL (3.4-5.0); ALKALINE PHOSPHATASE 93 U/L (46-116); ALT (SGPT) 32 U/L (10-68); BILIRUBIN - TOTAL 0.19 mg/dL (0.2-1.3); CALC OSMOLALITY 281 mosm/kg (275-300); CALCIUM 8.9 mg/dL (8.5-10.1); CARBON DIOXIDE 30.9 mmol/L (21.0-32.0); CHLORIDE - SERUM 103 mmol/L (98-107); CREATININE - SERUM 0.7 mg/dL (0.6-1.3); GLUCOSE 125 mg/dL (74-106); POTASSIUM - SERUM 3.8 mmol/L (3.5-5.1); PROTEIN - SERUM 7.3 g/dL (6.4-8.2); SODIUM 141 mmol/L (136-145); UREA NITROGEN 13 mg/dL (7-18); eGFR NON AFRICAN AMERICAN > 90 mL/min (90-120)
[2018-08-26 20:20] LABS: APTT 28.2 SECONDS (22.8-39.4); INR 0.92 (0.85-1.17)
[2018-08-26 20:29] LABS: CKMB 2.2 U/L (0.0-3.6); CREATINE KINASE 140 UL (21-232); PRO BNP 26 pg/mL (0-125); TROPONIN-I < 0.017 ng/mL (0.000-0.060)
[2018-08-26 22:44] VITALS: BP 144/82
== END 2018-08-26 22:44 | disposition home or self-care (01) ==
LOC: D.ER 19:00
PROVIDERS: Family Medicine
DX: J44.9 Chronic obstructive pulmonary disease, unspecified (principal); R07.89 Other chest pain; Z76.5 Malingerer [conscious simulation]; I10 Essential (primary) hypertension; K58.9 Irritable bowel syndrome, unspecified

== ENCOUNTER 2018-10-02 11:05 | Emergency (ER) | payer MEDICAID ==
[~2018-10-02] VITALS: Ht 172.7 cm; Wt 81.8 kg
[~2018-10-02 11:05] MED LIST changes: +ADVAIR HFA [SP]12 GM
[2018-10-02 11:24] VITALS: Ht 172.7 cm; Wt 81.8 kg
[2018-10-02 12:28] VITALS: BP 138/74
== END 2018-10-02 12:29 | disposition home or self-care (01) ==
LOC: D.ER 11:05
DX: M54.6 Pain in thoracic spine (principal); M62.838 Other muscle spasm; I10 Essential (primary) hypertension; J44.9 Chronic obstructive pulmonary disease, unspecified

== ENCOUNTER 2018-10-09 13:22 | Emergency (ER) | payer MEDICAID ==
[~2018-10-09] VITALS: Ht 172.7 cm; Wt 81.8 kg
[2018-10-09 13:33] VITALS: Ht 172.7 cm; Wt 81.8 kg
[2018-10-09 14:09] LABS: BASOPHILS 0.2 % (0-2); EOSINOPHILS 0.4 % (0-7); HEMATOCRIT 42.1 % (42.0-54.0); IMMATURE GRANULOCYTES 0.4 % (0-5); LYMPHOCYTES 12.3 % (15-50); MCH 30.4 pg (26.0-34.0); MCHC 33.3 g/dL (31.0-37.0); MCV 91.3 fL (80.0-100.0); MEAN PLATELET VOLUME 9.9 fL (7.4-10.4); MONOCYTES 8.4 % (2-11); NEUTROPHILS 78.3 % (40-80); PLATELET COUNT 325 10x3/uL (130-400); RBC 4.61 10x6/uL (4.20-6.10); RDW 12.7 % (11.5-14.5); WBC 11.2 10x3/uL (4.8-10.8)
[2018-10-09 14:41] LABS: ALBUMIN 3.7 g/dL (3.4-5.0); ALKALINE PHOSPHATASE 92 U/L (46-116); ALT (SGPT) 29 U/L (10-68); BILIRUBIN - TOTAL 0.19 mg/dL (0.2-1.3); CALC OSMOLALITY 284 mosm/kg (275-300); CALCIUM 9.3 mg/dL (8.5-10.1); CARBON DIOXIDE 28.2 mmol/L (21.0-32.0); CHLORIDE - SERUM 105 mmol/L (98-107); CREATININE - SERUM 0.7 mg/dL (0.6-1.3); GLUCOSE 126 mg/dL (74-106); POTASSIUM - SERUM 3.5 mmol/L (3.5-5.1); PROTEIN - SERUM 7.7 g/dL (6.4-8.2); SODIUM 142 mmol/L (136-145); UREA NITROGEN 13 mg/dL (7-18); eGFR NON AFRICAN AMERICAN > 90 mL/min (90-120)
[2018-10-09 14:52] LABS: CKMB 0.8 U/L (0.0-3.6); CREATINE KINASE 56 UL (21-232); PRO BNP 20 pg/mL (0-125)
[2018-10-09 14:55] LABS: TROPONIN-I < 0.017 ng/mL (0.000-0.060)
[2018-10-09] MEDS ORDERED: LEVAQUIN750 MG PO (17:50)
[2018-10-09] MEDS ORDERED: STERAPRED DS 1210 MG PO (17:50)
[2018-10-09 18:04] VITALS: BP 141/94
== END 2018-10-09 18:04 | disposition home or self-care (01) ==
LOC: D.ER 13:22
PROVIDERS: Family Medicine
DX: J40 Bronchitis, not specified as acute or chronic (principal); R07.9 Chest pain, unspecified; I10 Essential (primary) hypertension; J44.9 Chronic obstructive pulmonary disease, unspecified

== ENCOUNTER 2018-11-15 06:00 | Day surgery (SDC) | payer MEDICAID ==
[~2018-11-15] VITALS: Ht 172.7 cm; Wt 81.6 kg
[~2018-11-15 06:00] MED LIST changes: +STERAPRED DS 1210 MG PO
[2018-11-15 06:31] LABS: HEMATOCRIT 40.5 % (42.0-54.0); HEMOGLOBIN 13.5 g/dL (13.5-17.5); MCH 29.9 pg (26.0-34.0); MCHC 33.3 g/dL (31.0-37.0); MCV 89.8 fL (80.0-100.0); MEAN PLATELET VOLUME 9.8 fL (7.4-10.4); RBC 4.51 10x6/uL (4.20-6.10); RDW 12.5 % (11.5-14.5); WBC 8.1 10x3/uL (4.8-10.8)
[2018-11-15 07:57] VITALS: BP 124/74; Ht 172.7 cm; Wt 81.6 kg
[2018-11-15] MEDS ORDERED: SINGULAIR10 MG PO (08:08)
[2018-11-15] MEDS ORDERED: [UNRECOGNIZED DRUG - OTHER] (08:24)
[2018-11-15] MEDS ORDERED: OMEPRAZOLE CAP 20M (08:26)
[2018-11-15] MEDS ORDERED: BAYER CHEWABLE81 MG PO (08:26)
[2018-11-15] MEDS ORDERED: ZANAFLEX4 MG PO (08:28)
[2018-11-15] MEDS ORDERED: MULTI-DAY VITAM1 TAB PO (08:29)
--- NOTE | 2018-11-15 11:09 | NUR ---
1044 1 NORCO 5MG/325MG PO FOR PAIN. RANKS PAIN 06/17. PROVIDED WITH ICE PACK & INSTRUCTIONS FOR USE. Dago HOFF R.N.
--- NOTE | 2018-11-15 11:12 | OP ---
PATIENT NAME: PHAM DOBSON MEDICAL RECORD: [id number] :62 LOCATION:D.OPS ADMISSION DATE: SURGEON: ADAM ELIAS MD DATE OF OPERATION: 11/15/2018 SURGEON: Adam Elias MD ANESTHESIA: TIVA by Domingo Moreno MD DIAGNOSIS: Elevated PSA of 4.27 on 07/05/2018. PROCEDURE: Transrectal ultrasound and prostate biopsy. FINDINGS: A 27 gram prostate with small hypoechoic areas in the right lateral lobe. SPECIMENS: Prostate biopsy cores. BLOOD LOSS: None. CLINICAL HISTORY: This is a 58-year-old male, who was found to have an elevated PSA level of 4.27. The PSA level had been normal in the past. He has issues with voiding and he has urinary frequency with nocturia every 2-3 hours. There is also urgency and hesitancy getting started. The urinary flow was slow. He has no family history of prostate cancer. He comes today to have a prostate biopsy performed. HE IS ALLERGIC TO BACTRIM. We gave him Ancef seed corn production manager to the OR. DESCRIPTION OF PROCEDURE: The patient was placed in supine position and given IV sedation. He was then placed in the lithotomy position. The transrectal ultrasound probe was introduced. Prostate size measurements were obtained. We obtained a size of 27 grams. The occasional hypoechoic spot in the right lateral lobe was noted. Sextant biopsies were obtained with at least 3 cores from each sextant. Once all the specimens were obtained, the procedure was terminated. I will see the patient back next week to review the pathology with him. TRANSINT:[id number] Voice Confirmation ID: [id number] DOCUMENT ID: [id number] ADAM ELIAS MD at 1112 CC: [id number] DICTATION DATE: 11/15/18 1008 PEOPLESOFT FUNCTIONAL ANALYST: 11/15/18 1042 REG [facility] [address] [place] [address]
--- NOTE | 2018-11-15 15:19 | NUR ---
1115 IV DC'ED WITH CATH INTACT & 450ML LTC. DRESSING. @ BEDSIDE. Dago HOFF R.N. 1125 DRESSED, AWAKE & ALERT. STATES PAIN IS BETTER. NOW @ 02/15 COMPARED TO 06/17 EARLIER. GIVEN DISCHARGE INFORMATION INCLUDING, MED REC, RTC APPT., [facility] OUT PATIENT D/C INSTRUCTIONS, & PROSTATE BIOPSY D/C INSTRUCTIONS. PT & VOICED UNDERSTANDING. TO PRIVATE CAR PER WHEELCHAIR BY VOLUNTEER. HOME WITH , MRS. DOBSON. Dago HOFF R.N.
== END 2018-11-15 11:25 | disposition home or self-care (01) ==
LOC: D.OPS 06:00 → D.PAN 09:40 → D.OPS 09:40
PROVIDERS: Anesthesiology
DX: R97.20 Elevated prostate specific antigen [PSA] (principal); Z88.1 Allergy status to other antibiotic agents; Z01.812 Encounter for preprocedural laboratory examination

== ENCOUNTER → 2018-11-24 12:41 | Outpatient (CLI) | payer MEDICAID ==
[2018-11-15 07:57] VITALS: BMI 27.4
[~2018-11-24 12:41] MED LIST changes: +BAYER CHEWABLE81 MG PO; +MULTI-DAY VITAM1 TAB PO; +OMEPRAZOLE CAP 20M; +SINGULAIR10 MG PO; +ZANAFLEX4 MG PO; +[UNRECOGNIZED DRUG - OTHER]
[2018-11-26 09:13] LABS: IMMUNOGLOBULIN A 183 mg/dL (90-386)
[2018-11-28 17:10] LABS: IGG SUBCLASS 1 304 mg/dL (248-810); IGG SUBCLASS 2 429 mg/dL (130-555); IGG SUBCLASS 3 37 mg/dL (15-102); IGG SUBCLASS 4 121 mg/dL (2-96); IMMUNOGLOBULIN G 803 mg/dL (700-1600)
[2018-11-29 09:16] LABS: IMMUNOGLOBULIN E 88 IU/mL (0-100)
== END | disposition home or self-care (01) ==
LOC: D.RT 12:41
PROVIDERS: Internal Medicine Pulmonary Disease
DX: J44.9 Chronic obstructive pulmonary disease, unspecified (principal); Z87.01 Personal history of pneumonia (recurrent); J30.9 Allergic rhinitis, unspecified

== ENCOUNTER 2018-12-11 10:10 | Emergency (ER) | payer MEDICAID ==
[~2018-12-11] VITALS: Ht 172.7 cm; Wt 84.1 kg
[2018-12-11 10:17] VITALS: Ht 172.7 cm; Wt 84.1 kg
[2018-12-11 11:51] VITALS: BP 145/97
[2018-12-19] MEDS ORDERED: LUNESTA2 M1 (11:31)
== END 2018-12-11 11:52 | disposition home or self-care (01) ==
LOC: D.ER 10:10
DX: M54.5 Low back pain (principal); I10 Essential (primary) hypertension; J44.9 Chronic obstructive pulmonary disease, unspecified

== ENCOUNTER 2018-12-20 05:37 | Day surgery (SDC) | payer MEDICAID ==
[~2018-12-20] VITALS: Ht 172.7 cm; Wt 81.6 kg
[~2018-12-20 05:37] MED LIST changes: +LUNESTA2 M1
[2018-12-20 06:52] VITALS: BP 97/61; Ht 172.7 cm; Wt 81.6 kg
[2018-12-20 07:27] LABS: HEMOGLOBIN 11.6 g/dL (13.5-17.5); MCH 29.5 pg (26.0-34.0); MCHC 32.2 g/dL (31.0-37.0); MCV 91.6 fL (80.0-100.0); MEAN PLATELET VOLUME 10.1 fL (7.4-10.4); RBC 3.93 10x6/uL (4.20-6.10); RDW 12.9 % (11.5-14.5); WBC 8.4 10x3/uL (4.8-10.8)
--- NOTE | 2018-12-20 09:11 | NUR ---
0900 FL DIET SERVED, LEMON AGDAAGUX SERVED.
--- NOTE | 2018-12-20 10:00 | NUR ---
0921 ROOM CHECK, PT, STATES SOME BETTER.
--- NOTE | 2018-12-20 10:23 | NUR ---
1010 ROOM CHECK. PT UP IN BATHROOM, STATES ATTEMPTING TO HAVE BM.
--- NOTE | 2018-12-20 11:01 | NUR ---
1050 IV COMPLETED IV DC'D WITH CATH INTACT.
--- NOTE | 2018-12-20 11:16 | OP ---
PATIENT NAME: PHAM DOBSON MEDICAL RECORD: [id number] :62 LOCATION:D.[facility] ADMISSION DATE: SURGEON: AADM ELIAS MD DATE OF OPERATION: 12/20/2018 SURGEON: Adam Elias MD ANESTHESIA: TIVA by Monty Leyva CRNA DIAGNOSES: Obstructive benign prostatic hyperplasia, he is symptomatic times 5 years with a history of urinary tract infections, treated with Cipro. No benign prostatic hyperplasia medication use history. PSA was 4.7 with a benign prostate biopsy. Transrectal ultrasound revealed a 27 gram prostate. IPSS equals 23 and quality of life score is 6. FINDINGS: Obstructive bilateral lateral lobes. Single ureteral orifices bilaterally. No bladder tumors. Trabeculated bladder. PROCEDURE: Cystoscopy and UroLift times 6 devices attempted, 4 units held. BLOOD LOSS: Minimal. CLINICAL HISTORY: This is a 58-year-old male, who had an elevated PSA of 4.7. He had a transrectal ultrasound, which showed a 27 gram prostate. His prostate pathology was benign. He is concerned about his voiding symptoms. Has daytime urinary frequency every 30 minutes and nocturia every 2-3 hours. He has urgency when he has to void as well as hesitancy in getting started. The urinary flow is slow. He has had these symptoms for 5 years at least. He has never been offered BPH treatment medications. He has also had episodes of urinary tract infections during that time for which he was treated with Cipro. His IPSS score is 23 and his quality of life score is 8. He does not want to start medication treatment. He wished to proceed to treatment with UroLift. HE IS ALLERGIC TO MORPHINE AND BACTRIM. He was given Ancef rehabilitation physician to the OR. He has a history of chronic anemia also. DESCRIPTION OF PROCEDURE: The patient was given IV sedation. He was then placed in dorsal lithotomy position and prepped and draped. We placed the UroLift scope in. The penile urethra shows no strictures or lesions. The prostate shows large obstructive bilateral lateral lobes. The median lobe was slightly enlarged, but not obstructive. The rest of the findings are as outlined above. We then placed our two anterior lateral lobe devices near the bladder neck. These were placed about 1.5 to 2 cm distal to the bladder neck. On the left side, the device held with no issues. On the right side, the device lost its clip on the urethral side. We had to go into the bladder with graspers and remove this clip. Another device was fired into the right side and this one held. The remaining devices were placed at the verumontanum level. Going on the right side, the device was placed in the anterior urethral lateral lobe at the level of the verumontanum, it held fine. On the left side, one of the devices was fired and it hit bone. This had not completed stroke. This one had to be discarded. A final firing led to a device that held. Thus, we used 6 units in total, but 4 units actually held. Cystoscopy at the end revealed a good channel in the anterior urethra for him to void through. The bladder was emptied through the scope and the patient was awakened and brought to the preoperative holding area. OPERATIVE REPORT [id number] PHAM DOBSON TRANSINT:[id number] Voice Confirmation ID: [id number] DOCUMENT ID: [id number] ADAM ELIAS MD at 1116 CC: [id number] DICTATION DATE: 12/20/18 0845 FINANCIAL AID: 12/20/18 1115 [address] [place] [id number] [place] [address]
== END 2018-12-20 12:25 | disposition home or self-care (01) ==
LOC: D.OPS 05:37
PROVIDERS: Anesthesiology
DX: N40.1 Benign prostatic hyperplasia with lower urinary tract symptoms (principal); N13.8 Other obstructive and reflux uropathy

== ENCOUNTER 2019-03-05 18:25 | Emergency (ER) | payer MEDICAID ==
[~2019-03-05] VITALS: Ht 172.7 cm; Wt 81.8 kg
[2019-03-05 18:29] VITALS: Ht 172.7 cm; Wt 81.8 kg
[2019-03-05] MEDS ORDERED: VOLTAREN75 MG PO (19:40)
[2019-03-05] MEDS ORDERED: BACLOFEN20 M1 PO (19:40)
[2019-03-05 20:13] VITALS: BP 106/70
== END 2019-03-05 20:14 | disposition home or self-care (01) ==
LOC: D.ER 18:25
DX: M54.6 Pain in thoracic spine (principal); M79.18 Myalgia, other site

== ENCOUNTER 2019-04-08 10:00 | Emergency (ER) | payer MEDICAID ==
[~2019-04-08 10:00] MED LIST changes: +BACLOFEN20 M1 PO; +VOLTAREN75 MG PO
[2019-04-08 10:02] VITALS: BMI 26.6
[2019-04-08] MEDS ORDERED: BACLOFEN20 M1 PO (10:41)
[2019-04-08] MEDS ORDERED: TALWIN NX1 TAB PO (10:41)
[2019-04-08 11:35] VITALS: BP 118/74
== END 2019-04-08 11:36 | disposition home or self-care (01) ==
LOC: D.ER 10:00
DX: M54.9 Dorsalgia, unspecified (principal); M62.838 Other muscle spasm

== ENCOUNTER → 2020-07-08 15:02 | Outpatient (CLI) | payer OTHER ==
[~2020-07-08 15:02] MED LIST changes: +TALWIN NX1 TAB PO
== END | disposition home or self-care (01) ==
LOC: D.LAB 15:02
PROVIDERS: ATTEND Internal Medicine Pulmonary Disease
DX: Z11.59 Encounter for screening for other viral diseases (principal)

== ENCOUNTER → 2020-07-11 12:57 | Outpatient (CLI) | payer OTHER | END | disposition home or self-care (01) | LOC: D.RT 01-29 11:00 → D.RAD 01-29 11:30 → D.RT 06-11 11:00 → D.RAD 12:57 | PROVIDERS: ATTEND Internal Medicine Pulmonary Disease | DX: J45.909 Unspecified asthma, uncomplicated (principal) ==

== ENCOUNTER 2020-08-18 12:14 | Emergency (ER) | payer OTHER ==
[~2020-08-18] VITALS: Ht 172.7 cm; Wt 95.5 kg
[2020-08-18 12:28] VITALS: Ht 172.7 cm; Wt 95.5 kg
[2020-08-18] MEDS ORDERED: FLUTICASONE PRO16 GM (12:31)
[2020-08-18] MEDS ORDERED: BUTALB-APAP-CA1 EACH (12:32)
[2020-08-18] MEDS ORDERED: LASIX20 MG PO (12:33)
[2020-08-18] MEDS ORDERED: KLOR-CON 1010 MEQ PO (12:33)
[2020-08-18] MEDS ORDERED: POTASSIUM CHLO10 ME1 (12:34)
[2020-08-18] MEDS ORDERED: LIPITOR40 MG PO (12:34)
[2020-08-18] MEDS ORDERED: CYMBALTA60 MG PO (12:35)
[2020-08-18] MEDS ORDERED: TEMAZEPAM30 MG PO (12:36)
[2020-08-18 12:58] LABS: BASOPHILS 0.6 % (0-2); EOSINOPHILS 2.3 % (0-7); HEMATOCRIT 42.9 % (42.0-54.0); HEMOGLOBIN 13.8 g/dL (13.5-17.5); IMMATURE GRANULOCYTES 0.5 % (0-5); MCH 29.1 pg (26.0-34.0); MCHC 32.2 g/dL (31.0-37.0); MCV 90.3 fL (80.0-100.0); MEAN PLATELET VOLUME 9.7 fL (7.4-10.4); MONOCYTES 6.1 % (2-11); NEUTROPHILS 73.5 % (40-80); PLATELET COUNT 275 10x3/uL (130-400); RBC 4.75 10x6/uL (4.20-6.10); RDW 13.9 % (11.5-14.5); WBC 8.2 10x3/uL (4.8-10.8)
[2020-08-18 13:06] LABS: APTT 30.2 SECONDS (22.8-39.4); INR 0.93 (0.85-1.17); PROTIME 12.5 SECONDS (11.6-15.0)
[2020-08-18 13:30] LABS: CALC OSMOLALITY 277 mosm/kg (275-300); CALCIUM 9.2 mg/dL (8.5-10.1); CARBON DIOXIDE 28.8 mmol/L (21.0-32.0); CHLORIDE - SERUM 105 mmol/L (98-107); CREATININE - SERUM 0.8 mg/dL (0.6-1.3); GLUCOSE 107 mg/dL (74-106); POTASSIUM - SERUM 4.1 mmol/L (3.5-5.1); SODIUM 140 mmol/L (136-145); UREA NITROGEN 9 mg/dL (7-18); eGFR NON AFRICAN AMERICAN > 90 mL/min (90-120)
[2020-08-18 13:47] LABS: ALBUMIN 3.8 g/dL (3.4-5.0); ALKALINE PHOSPHATASE 121 U/L (30-120); ALT (SGPT) 33 U/L (10-68); CKMB 1.6 U/L (0.0-3.6); CREATINE KINASE 90 UL (21-232); PRO BNP 40 pg/mL (0-125); PROTEIN - SERUM 7.2 g/dL (6.4-8.2)
[2020-08-18 13:50] LABS: BILIRUBIN - TOTAL 0.09 mg/dL (0.2-1.3)
[2020-08-18 15:03] VITALS: BP 132/79
== END 2020-08-18 15:03 | disposition home or self-care (01) ==
LOC: D.ER 12:14
PROVIDERS: Family Medicine
DX: R06.02 Shortness of breath (principal); J45.909 Unspecified asthma, uncomplicated; I10 Essential (primary) hypertension; K21.9 Gastro-esophageal reflux disease without esophagitis